=== PATIENT | female | born 1960 | race Caucasian/White ===

== ENCOUNTER → 2023-08-22 09:12 | Outpatient (REF) | payer OTHER, SELFPAY | LOC: WDC 09:12 | PROVIDERS: ATTENDING PHYSICIAN Surgery | DX: C50.412 Malignant neoplasm of upper-outer quadrant of left female breast (principal) | CPT/HCPCS: 19285; 38792; 76942; 77065; A4648; A9541 ==

== ENCOUNTER → 2023-08-23 07:39 | Outpatient (REF) | payer OTHER, SELFPAY | LOC: WDC 07:39 | PROVIDERS: ATTENDING PHYSICIAN Surgery | DX: C50.412 Malignant neoplasm of upper-outer quadrant of left female breast (principal) | CPT/HCPCS: 88305; 88307; 88332; 76098; 88331; 88342 ==

== ENCOUNTER 2023-10-15 07:12 | Emergency (ER) | payer OTHER, SELFPAY ==
[2023-10-15] VITALS (7 sets, daily range): BP systolic 108–124; BP diastolic 63–78; PULSE 78–87
--- NOTE | 2023-10-15 07:45 | ED.GENMED ---
History of Present Illness
General
Chief Complaint: Fainting/Passed Out
Source: patient, records and spouse
Exam Limitations: none
Time Seen by Provider: 10/15/23 07:28
Nursing documentation reviewed up to this point in time: agreed with
Travel History
Have you had any contact with someone who has COVID-19?: No
Do you have any symptoms of coronavirus? Fever > 100 degrees, chills, cough, shortness of breath, sore throat, loss of taste or smell, muscle aches, or headache?: No
History of Present Illness
History of Present Illness:
Patient is a 63-year-old female presents to the emergency department after syncopal episode this morning. Patient started chemotherapy 5 days ago for the first time. Patient had a lumpectomy on the left with 1 node that was positive. For the next
2 days the patient felt fine and then 2 days ago she was not feeling well and had a temperature of 100 with generalized malaise and myalgias arthralgias. Patient denies any nasal congestion, sore throat or cough. Patient denies any GI or
symptoms. Yesterday the patient felt pretty much the same length. During the night and around 1245 the patient took Tylenol for fever. Patient then started to have more frequent bowel movements that were not diarrhea. At 4:30 AM she developed
terrible stomach pain and passed out. Patient did fall forward striking her face. Patient feels tired. Patient denies any chest pain, shortness of breath or palpitations. Patient denies any nausea or vomiting. Patient denies any symptoms.
Patient does have a history of atrial fibrillation and is on Eliquis. Patient denies any malocclusion but does state that she injured her right upper lip. Patient denies any neck or back pain. Patient called her oncologist who suggested she come
to the hospital and get checked out. Patient states she has been eating and drinking. Patient had an echocardiogram since beginning of the year which was unremarkable.
Past History
Past History
ED Past Medical History: Cancer (Thyroid, breast), HTN, Hypothyroidism and Other (Right bundle branch block)
ED Past Surgical History: Other (Thyroidectomy)
Social History
Tobacco: Non-smoker
Review of Systems
Review of Systems
All Other Systems: ROS reviewed and negative except as documented in HPI and ROS
Constitutional: Reports fever and fatigue; Denies chills
EENT: Reports no symptoms
Respiratory: Reports no symptoms
Cardiac: Reports syncope; Denies chest pain, diaphoresis or palpitations
ABD/GI: Reports abdominal pain; Denies nausea, vomiting, diarrhea, constipated, bloody stools, black stools or anorexia
: Reports no symptoms
Musculoskeletal: Reports no symptoms
Skin: Reports no symptoms
Neurological: Reports no symptoms
Hematologic/Lymphatic: Reports no symptoms
Psychiatric: Reports no symptoms
Phy Exam
Physical Exam
Physical Exam:
Physical Exam
General: No apparent distress, alert and appropriate, well nourished, dry mucous membranes
HENT: Normocephalic with mild right lip contusion but dentition intact, supple with no lymphadenopathy, no thyromegaly
Eyes: Clear sclera, conjuctiva without injection
Heart: Regular rhythm and rate. No S3, S4. No murmur. No NVD, bruit
Lungs: No respiratory distress, no stridor, lung sounds clear and equal bilaterally, chest wall nontender
Abdomen: Soft, nontender, no organomegaly, no CVA tenderness, BS good
Neuro: Alert and oriented x 3, CN II - XII intact, no motor focality, no cerebellar dysfunction
Skin: no rash
Psychiatric: well kept. interactive and cooperative
Extremities: No edema, cyanosis, tenderness, Good and equal peripheral pulses.
Scores
Heart Failure Risk
Heart Failure Risk Score: Not Applicable
Heart Score for Chest Pain Patients
STEMI patient?: Not applicable
Withdrawal Assessment of Alcohol
Withdrawal Assessment Completed?: Not applicable
Course
Orders/Labs/Results
Orders:
Orders
10/15/23 07:16
EKG [Electrocardiogram (*1)] Urgent
Reason for Study: Syncope
10/15/23 07:17
EKG- Treatment ONCE
10/15/23 07:42
Orthostatic VS- Treatment ONCE
0.9% Sodium Chloride 1000 ml [Nss] 1,000 ml IV BOLUS
10/15/23 07:44
CT Head W/o Iv Contrast Urgent
Comment:
Reason For Exam: eliquis fell struck head
10/15/23 08:12
Complete Blood Count/With Diff Urgent
Comprehensive Metabolic Panel Urgent
TSH Reflex To Free T4 Urgent
Troponin I Urgent
Abnormal Lab Results
10/15/23
08:12
WBC 3.7 L 10^3/uL
(4.8-10.8)
Sodium 134 L mmol/L
(135-145)
Glucose 104 H mg/dl
(70-99)
ALT 46 H U/L
(0-35)
10/15/23 08:12
10/15/23 08:12
Vital Signs
Initial and Last Documented VS:
Initial Vital Signs
Temp Pulse Resp BP Pulse Ox
98.1 F 81 16 111/78 100
10/15/23 07:13 10/15/23 07:13 10/15/23 07:13 10/15/23 07:13 10/15/23 07:13
Last Documented Vital Signs
Temp Pulse Resp BP Pulse Ox
98.1 F 79 15 124/74 99
10/15/23 07:13 10/15/23 09:15 10/15/23 09:15 10/15/23 09:00 10/15/23 09:15
*Radiology
Radiology exam reviewed: radiology read reviewed (CT of the head unremarkable)
*Pulse Oximetry
Patient hypoxic: no
*EKG
Interpreted by ED Provider?: Yes
EKG Intrepretation Date: 10/15/23
EKG Intrepretation Time: 07:50
Interpretation: abnormal
Comparison EKG: no changes
Heart Rate: 71
Rate: normal
Rhythm: sinus
[place]: normal axis
Interval: normal interval
QRS Pattern: right bundle branch block (incomplete)
Ischemia: no ischemia
*Critical Care Note
Total Time (30-74mins, 75-104mins- exclusive of procedures): Not Applicable
Update Note
Update Note:
Patient is feeling much better. Patient was given a liter of fluid. Patient clinically appeared dehydrated. Patient's labs are unremarkable. Patient will be discharged to follow-up with her physician.
ED Attending Note
-
Portions of this chart may have been created with voice recognition software.� Occasional wrong word or��sound alike� substitutions may have occurred due to the inherent limitations of voice recognition software.
Discharge Plan
Departure
Patient Disposition: Home (Routine Discharge)
Date of Disposition: 10/15/23
Time of Disposition: 09:47
Patient with high blood pressure during this ER visit?: No
Condition: Good
Covid-19: Not Applicable
Discharge Problem:
Syncope
Instructions: Syncope (Fainting) (DC)
Prescriptions:
No Action
amlodipine 5 mg Tablet
5 mg PO QPM
acetaminophen [Tylenol Extra Strength] 500 mg Tablet
1,000 mg PO BIDPRN PRN (Reason: mild pain)
levothyroxine 100 mcg Tablet
100 mcg PO DAILY
calcium carbonate 500 mg calcium (1,250 mg) Tablet
500 mg PO QPM
cholecalciferol (vitamin D3) 50 mcg (2,000 unit) Tablet
50 mcg PO QPM
metoprolol succinate 50 mg Tablet Extended Release 24 Hr
50 mg PO BID Qty: 60 0RF
Eliquis 5 mg Tablet
5 mg PO BID Qty: 60 0RF
Referrals:
Radha Reyes, DO [Family Provider] - Follow up in 5-7 days
Activity Restrictions/Additional Instructions:
Continue present medications and therapy. Make sure to stay very well-hydrated.
Interventions
Interventions:
*Risk Screen - Suicide Last Done: 10/15/23 07:13
*General Assessment Last Done: 10/15/23 07:13
*Neglect/Abuse Screening Last Done: 10/15/23 07:13
ED- Fall Risk Assessment Last Done: 10/15/23 08:10
ED- Cardiac Assessment Last Done: 10/15/23 08:10
Discharge Date and Time
Print Language: OCCITAN
[2023-10-15] MEDS: NSS 1000 IV (08:13)
[2023-10-15 08:28] LABS: Hematocrit 39.8 % (37.0-47.0); Hemoglobin 13.5 g/dL (12.0-16.0); Mean Corp Hgb Conc. 33.9 g/dL (33.0-37.0); Mean Corpuscular Hgb 29.9 pg (27.0-31.0); Mean Corpuscular Volume 88.2 fL (81.0-99.0); Nucleated Red Blood Cells % 0 %; Red Blood Cell Count 4.51 10^6/uL (4.20-5.40); Red Cell Dist. Width 12.3 % (11.5-14.5); White Blood Cell Count 3.7 10^3/uL (4.8-10.8)
[2023-10-15 08:38] LABS: ALT (SGPT) 46 U/L (0-35); AST (SGOT) 23 U/L (14-36); Alkaline Phosphatase 98 U/L (38-126); Blood Urea Nitrogen 10 mg/dl (7-17); Calcium 8.5 mg/dl (8.4-10.2); Carbon Dioxide 27 mmol/L (22-30); Chloride 103 mmol/L (98-107); Glucose 104 mg/dl (70-99); Potassium 4.4 mmol/L (3.5-5.1); Sodium 134 mmol/L (135-145); eGFR > 60.00
[2023-10-15 08:50] LABS: Troponin I < 0.012 ng/ml
[2023-10-15 09:09] LABS: TSH Reflex To Free T4 1.82 uIU/ml (0.47-4.68)
[2023-10-15 12:12] LABS: Mean Platelet Volume 12.8 fL (7.4-10.4); Platelet Count 109 10^3/uL (130-400)
[2023-10-15 12:13] LABS: Absolute Neutrophils -Man Diff 3.1 10^3/uL (1.4-6.5); Band Neutrophils 10 % (0-3); Eosinophils 1 % (0-6); Lymphocytes 3 % (20-51); Metamyelocytes 3 % (-); Monocytes 2 % (2-9); Myelocytes 4 % (-); Segmented Neutrophils 76 % (42-75)
[2023-10-15 12:14] LABS: Hypersegmented Neutrophil FEW; Normal RBC Morphology No; Platelets Checked YES
[2023-10-15 12:16] LABS: Target Cells FEW; Total Cells Counted 100
== END 2023-10-15 10:20 | disposition home or self-care (01) ==
LOC: EMR 07:12
PROVIDERS: EMERGENCY PHYSICIAN Emergency Medicine; FAMILY PHYSICIAN Family Medicine
DX: R55 Syncope and collapse (principal); I10 Essential (primary) hypertension; E03.9 Hypothyroidism, unspecified; I45.10 Unspecified right bundle-branch block; I48.91 Unspecified atrial fibrillation; Z79.01 Long term (current) use of anticoagulants
CPT/HCPCS: 99284; 96360; 70450; 80053; 84443; 84484; 85025; 93005

== ENCOUNTER 2023-12-20 21:33 | Inpatient (IN) | payer OTHER, SELFPAY ==
[2023-12-20 17:41] VITALS: BP 120/72
[2023-12-20 18:13] LABS: Hematocrit 29.3 % (37.0-47.0); Hemoglobin 10.3 g/dL (12.0-16.0); Mean Corp Hgb Conc. 35.2 g/dL (33.0-37.0); Mean Corpuscular Hgb 30.7 pg (27.0-31.0); Mean Corpuscular Volume 87.2 fL (81.0-99.0); Mean Platelet Volume 11.1 fL (7.4-10.4); Platelet Count 165 10^3/uL (130-400); Red Blood Cell Count 3.36 10^6/uL (4.20-5.40)
[2023-12-20 18:23] LABS: Lactic Acid 1.8 mmol/L (0.7-2.0)
[2023-12-20 18:25] LABS: White Blood Cell Count 1.5 10^3/uL (4.8-10.8)
[2023-12-20 18:26] LABS: COVID-19 Antigen Negative (Negative)
[2023-12-20 18:36] LABS: ALT (SGPT) 30 U/L (0-35); AST (SGOT) 20 U/L (14-36); Albumin 3.9 g/dl (3.5-5.0); Alkaline Phosphatase 87 U/L (38-126); Blood Urea Nitrogen 8 mg/dl (7-17); Calcium 8.8 mg/dl (8.4-10.2); Carbon Dioxide 26 mmol/L (22-30); Glucose 125 mg/dl (70-99); Total Bilirubin 0.5 mg/dl (0.2-1.3); Total Protein 6.9 g/dl (6.3-8.2); eGFR > 60.00
[2023-12-20 18:47] LABS: Chloride 102 mmol/L (98-107); Potassium 3.9 mmol/L (3.5-5.1); Sodium 132 mmol/L (135-145)
[2023-12-20 18:58] LABS: Band Neutrophils 0 % (0-3); Lymphocytes 39 % (20-51); Monocytes 33 % (2-9); Segmented Neutrophils 21 % (42-75)
[2023-12-20 18:59] LABS: Atypical Lymphocytes 4 %; Eosinophils 2 % (0-6); Normal RBC Morphology Yes; Other Cells 1; Platelets Checked Yes; Total Cells Counted 100
[2023-12-20 19:02] LABS: Absolute Neutrophils -Man Diff 0.3 10^3/uL (1.4-6.5)
--- NOTE | 2023-12-20 20:12 | ED.GENMED ---
Addendum entered and electronically signed by Emil Fitzgerald DO 12/20/23 20:35:
Patient does not have a port we will hold on vancomycin for now
Addendum entered and electronically signed by Emil Fitzgerald DO 12/20/23 20:20:
EKG sinus tach at 120 bpm
Original Note:
History of Present Illness
General
Chief Complaint: Fever
Source: patient
Exam Limitations: none
Time Seen by Provider: 12/20/23 19:51
Nursing documentation reviewed up to this point in time: agreed with
Travel History
Have you had any contact with someone who has COVID-19?: No
Do you have any symptoms of coronavirus? Fever > 100 degrees, chills, cough, shortness of breath, sore throat, loss of taste or smell, muscle aches, or headache?: No
History of Present Illness
History of Present Illness:
63-year-old female presents with fever body aches, mild congestion, conjunctivitis for left eyelid with a stye, some redness of her right forearm had a prior IV site, she [facility] Reece for breast cancer last chemo
was a week ago, only tolerated half a dose of Neupogen/Neulasta? previously when she got a full dose she had syncope
No dysuria or frequency no diarrhea, she spoke with her on-call oncologist who recommended she come to the ER likely to be admitted she was given an antibiotic for her eye today by her eye doctor was a pill, she is unsure the name
Past History
Past History
ED Past Medical History: Cancer (Thyroid, breast), HTN, Hypothyroidism and Other (Right bundle branch block)
ED Past Surgical History: Cardiac and Other (Thyroidectomy mastectomy, ASD repair)
Social History
Tobacco: Non-smoker
Alcohol: None
Drug: None
Personal:
Living: with family
Review of Systems
Review of Systems
All Other Systems: Not applicable
Constitutional: Reports fever, fatigue and chills
EENT: Reports other (Eye swelling)
Respiratory: Reports cough
Cardiac: Reports no symptoms
ABD/GI: Reports no symptoms
: Reports no symptoms
Musculoskeletal: Reports muscle stiffness and other (Mild redness of the right forearm)
Hematologic/Lymphatic: Reports no symptoms
Psychiatric: Reports no symptoms
Phy Exam
Physical Exam
Physical Exam:
Physical Exam
General: no apparent distress, not acutely ill
Neck: Dry lips no jaundice stye on the left eye
Heart: s1/s2 regular rate and rhythm, no murmur. equal radial pulses.
Lungs: no acute respiratory distress.
Abdomen: Nontender
Neuro: alert and oriented. no focal neurological deficits
Skin: no rash
Psychiatric: well kept. interactive and cooperative
Extremities: 3 x 5 cm area of warmth on the right forearm
Course
Orders/Labs/Results
Orders:
Orders
12/20/23 17:46
Electrocardiogram (*1) Urgent
Reason for Study: Other
Other Reason for Exam: Possible Sepsis
EKG- Treatment ONCE
12/20/23 17:59
COVID-19 Antigen Urgent
Source: Nasal Swab
Complete Blood Count/With Diff Urgent
Comprehensive Metabolic Panel Urgent
Lactic Acid Urgent
Manual Differential Urgent
Blood Culture Urgent
RAQUEL Source: Blood/Venous
Specimen Description:
Influenza A+B Rapid Molecular Urgent
RAQUEL Source: Nasal Swab
Specimen Description:
12/20/23 20:07
CR Chest Portable - 1 View Urgent
Comment:
Reason For Exam: sob fever
Reason Study Needs to be Portable: Patient Unstable
12/20/23 20:09
0.9% Sodium Chloride 1000 ml [Nss] 2,000 ml IV BOLUS
Cefepime HCl [Maxipime] 2,000 mg IV NOW STA
12/20/23 20:10
Urinalysis Urgent
Urine Culture Urgent
RAQUEL Source: Urine
Specimen Description:
Abnormal Lab Results
12/20/23
17:59
WBC 1.5 L* 10^3/uL
(4.8-10.8)
RBC 3.36 L 10^6/uL
(4.20-5.40)
Hgb 10.3 L g/dL
(12.0-16.0)
Hct 29.3 L %
(37.0-47.0)
RDW 15.0 H %
(11.5-14.5)
MPV 11.1 H fL
(7.4-10.4)
Sodium 132 L mmol/L
(135-145)
Creatinine 0.5 L mg/dL
(0.6-1.0)
Glucose 125 H mg/dl
(70-99)
12/20/23 17:59
12/20/23 17:59
Vital Signs
Initial and Last Documented VS:
Initial Vital Signs
Temp Pulse Resp BP Pulse Ox
99.7 F 125 20 120/72 97
12/20/23 17:41 12/20/23 17:41 12/20/23 17:41 12/20/23 17:41 12/20/23 17:41
Last Documented Vital Signs
Temp Pulse Resp BP Pulse Ox
99.7 F 125 20 120/72 97
12/20/23 17:41 12/20/23 17:41 12/20/23 17:41 12/20/23 17:41 12/20/23 17:41
MDM/Problems Addressed
Differential Diagnosis Includes:
Neutropenic sepsis bacteremia cellulitis conjunctivitis
MDM/Problems Addressed:
Fever neutropenia
Chronic conditions affecting care: Immunosuppressed
Acute Exacerbation and/or Progression of Chronic Illness: Immunosuppressed
*Radiology
Radiology exam reviewed: preliminary read by ED provider
*Pulse Oximetry
Patient hypoxic: no
*Physician Representative Interpretation
Rate: normal
Interpretation: normal
Heart Rate: 105
Rhythm: sinus
*Critical Care Note
Total Time (30-74mins, 75-104mins- exclusive of procedures): 30
Update Note
Update Note:
Update white count noted differential pending will certainly be neutropenic conceivably could be due to her stye and/or cellulitis nonetheless it would be prudent to admit her to the hospital broad-spectrum antibiotics following resuscitation Tylenol
ED Attending Note
-
Portions of this chart may have been created with voice recognition software.� Occasional wrong word or��sound alike� substitutions may have occurred due to the inherent limitations of voice recognition software.
Discharge Plan
Departure
Patient Disposition: Admit
Date of Disposition: 12/20/23
Time of Disposition: 20:18
Presentation/result/management discussed w/ accepting MD/DO: Hospitalist
Patient with high blood pressure during this ER visit?: No
Condition: Fair
Covid-19: Negative COVID-19
Discharge Problem:
Neutropenia with fever
Prescriptions:
No Action
amlodipine 5 mg Tablet
5 mg PO QPM
acetaminophen [Tylenol Extra Strength] 500 mg Tablet
1,000 mg PO BIDPRN PRN (Reason: mild pain)
levothyroxine 100 mcg Tablet
100 mcg PO DAILY
calcium carbonate 500 mg calcium (1,250 mg) Tablet
500 mg PO QPM
cholecalciferol (vitamin D3) 50 mcg (2,000 unit) Tablet
50 mcg PO QPM
metoprolol succinate 50 mg Tablet Extended Release 24 Hr
50 mg PO BID Qty: 60 0RF
Eliquis 5 mg Tablet
5 mg PO BID Qty: 60 0RF
Interventions
Interventions:
*Risk Screen - Suicide Last Done: 12/20/23 17:41
*General Assessment Last Done: 12/20/23 17:41
*Neglect/Abuse Screening Last Done: 12/20/23 17:41
Discharge Date and Time
Print Language: SYRIAC
[2023-12-20 20:53] LABS: Urine Albumin Negative (Neg - Trace); Urine Bilirubin Negative (Negative); Urine Character Clear (Clear); Urine Color Yellow; Urine Glucose Negative (Negative); Urine Ketone Negative (Negative); Urine Leukocyte 2+ (Negative); Urine Nitrite Negative (Negative); Urine Occult Blood Negative (Negative); Urine Specific Gravity 1.005 (<1.030); Urine Urobilinogen Negative (Neg - 1+)
--- NOTE | 2023-12-20 21:08 | HPS.HSE ---
Family Physician
-
Family Physician: Radha Reyes
Chief Complaint
-
fever
History of Present Illness
63-year-old female past medical history of breast cancer on chemotherapy, paroxysmal atrial fibrillation, history of SVT, ASD status post repair, right bundle branch block, hypertension, hypothyroidism, thyroid cancer status post thyroidectomy,
presenting with fever, weakness as well as left eye stye and redness and swelling of the right forearm over the past 5 ays.
Patient received chemotherapy 7 days ago, and 6 days ago received a shot increase her white blood cell count. 5 days ago she developed the symptoms listed above. She recently had a left eyelid stye for which she has been applying warm compresses.
It was painful and did appear to improve but she has some conjunctivitis of the left eye. She went to see stringing machine tender today who prescribed Keflex.
Patient has also developed redness, swelling and pain of her right forearm where IV was placed for chemotherapy.
She denies nausea vomiting, diarrhea, urinary symptoms. She has some mild cough which she thinks is from irritation of her throat. She denies chest pain.
She denies smoking or alcohol use.
Medical History
Past Medical History
Past Medical History: Reports Other (breast cancer on chemotherapy, paroxysmal atrial fibrillation, history of SVT, ASD status post repair, right bundle branch block, hypertension, hypothyroidism, thyroid cancer status post thyroidectomy,)
Past Surgical History: Reports Other (Cardiac and Other (Thyroidectomy mastectomy, ASD repair))
Social History
Tobacco: Non-smoker
Alcohol: Occasional
Drug: None
Family History
Family History: Not pertinent
Allergies / Home Medications
Allergies reflects when Allergies were last updated in [facility].
Home Medications with original date entered in [facility]
Allergy/Medication List:
Allergies
Allergy/AdvReac Type Severity Reaction Status Date / Time
No Known Allergies Allergy Verified 12/20/23 17:45
Home Medications
acetaminophen 500 mg tablet (Tylenol Extra Strength) 1,000 mg PO BIDPRN PRN mild pain 07/22/23
amlodipine 5 mg tablet 5 mg PO QPM 07/22/23
calcium carbonate 500 mg PO QPM 07/22/23
cholecalciferol (vitamin D3) 50 mcg (2,000 unit) tablet 50 mcg PO QPM 07/22/23
levothyroxine 100 mcg tablet 100 mcg PO DAILY 07/22/23
metoprolol succinate 50 mg tablet,extended release 24 hr 50 mg PO BID #60 tabs 07/23/23
cephalexin 500 mg tablet 500 mg PO BID 12/20/23
Review of Systems
-
History Source: Patient
A 12 point ROS was completed and negative except as noted: Yes
Constitutional: Reports No Symptoms
EENT: Reports See HPI
Respiratory: Reports No Symptoms
Cardiac: Reports No Symptoms
Abdomen/GI: Reports No Symptoms
: Reports No Symptoms
Musculoskeletal: Reports No Symptoms
Skin: Reports See HPI
Neurological: Reports No Symptoms
Endocrine: Reports No Symptoms
Hematologic/Lymphatic: Reports No Symptoms
Psych: Reports No Symptoms
Physical Exam
Vital Signs
Vital Signs
Temp Pulse Resp BP Pulse Ox
99.7 F 125 20 120/72 97
12/20/23 17:41 12/20/23 17:41 12/20/23 17:41 12/20/23 17:41 12/20/23 17:41
Physical Exam
General: Well Developed, Well Nourished and No Apparent Distress
HEENT: NormoCephalic, Moist mucous membranes, Atraumatic and Other (left eye conjunctivitis )
Respiratory: Clear
Cardiac: S1/S2 and Regular Rhythm; No Murmur or Rub
GI: Soft, Non Tender, Non Distended and Normal Bowel Sounds; No Organomegaly
Rectal: Deferred by Provider
Musculoskeletal: No Clubbing, No Cyanosis and No Edema
Skin: Other (right forearm erythema, swelling ); No Rash
Neuro: Nonfocal/grossly intact
Laboratory Results
-
12/20/23 17:59
12/20/23 17:59
Laboratory Results
Lactic Acid 1.8 mmol/L (0.7-2.0) 12/20/23 17:59
Total Bilirubin 0.5 mg/dl (0.2-1.3) 12/20/23 17:59
AST 20 U/L (14-36) 12/20/23 17:59
ALT 30 U/L (0-35) 12/20/23 17:59
Alkaline Phosphatase 87 U/L (38-126) 12/20/23 17:59
Data Reviewed
-
Lab Data: Labs Reviewed by me
Old Records: Reviewed
Impression/Plan
-
IMPRESSION:
PLAN:
# Sepsis (fever, tachycardia, leukopenia) secondary to right forearm cellulitis/ left eye stye
-COVID and influenza negative
-Urinalysis pending
-Check blood cultures
-IV fluids
-Cefepime
# Worsening leukopenia secondary to infection/recent chemotherapy
-Oncology consulted
# Normocytic anemia likely secondary to chemotherapy
-Hemoglobin of 10
# Cough
-Check chest x-ray
Breast cancer on chemotherapy
-Last received chemotherapy last week
Paroxysmal atrial fibrillation
-EKG shows sinus tachycardia at this time
-Continue Eliquis
-Continue metoprolol
History of SVT
ASD status post repair
Right bundle branch block
Essential hypertension
-Continue amlodipine
Thyroid cancer status post thyroidectomy
Hypothyroidism
-Continue levothyroxine
Full code
DVT prophylaxis�Eliquis
Regular diet
[2023-12-20 21:22] LABS: Urine Bacteria Few (Negative); Urine Red Blood Cell 0-2 /HPF (0-2); Urine Squamous Cell >30 /LPF (Few)
[2023-12-20] MEDS: MAXIPIME 2000 MG IV (21:28)
[2023-12-20] MEDS: NSS 2000 IV (21:34)
[2023-12-20 21:36] VITALS: BP 130/75
[2023-12-20] MEDS: TYLENOL 1000 MG PO (22:37)
[2023-12-20 22:42] LABS: Pathologist Reviewed No
[2023-12-20 23:21] VITALS: BP 147/80; BMI 28.1
[2023-12-20 23:29] VITALS: BMI 28.1
[2023-12-20] MEDS: NSS 1000 IV (23:31)
[2023-12-21] VITALS (7 sets, daily range): BP systolic 93–121; BP diastolic 63–76; BMI 28.1
[2023-12-21 05:31] LABS: Hematocrit 28.5 % (37.0-47.0); Hemoglobin 9.7 g/dL (12.0-16.0); Mean Corpuscular Hgb 30.2 pg (27.0-31.0); Mean Corpuscular Volume 88.8 fL (81.0-99.0); Mean Platelet Volume 11.1 fL (7.4-10.4); Nucleated Red Blood Cells % 0 %; Platelet Count 168 10^3/uL (130-400); Red Blood Cell Count 3.21 10^6/uL (4.20-5.40); Red Cell Dist. Width 15.4 % (11.5-14.5)
[2023-12-21 05:52] LABS: ALT (SGPT) 26 U/L (0-35); AST (SGOT) 18 U/L (14-36); Albumin 3.3 g/dl (3.5-5.0); Alkaline Phosphatase 76 U/L (38-126); Blood Urea Nitrogen 5 mg/dl (7-17); Carbon Dioxide 23 mmol/L (22-30); Chloride 106 mmol/L (98-107); Estimated Creatinine Clearance 93 ml/min; Glucose 105 mg/dl (70-99); Potassium 4.2 mmol/L (3.5-5.1); Sodium 138 mmol/L (135-145); Total Bilirubin 0.7 mg/dl (0.2-1.3); Total Protein 5.9 g/dl (6.3-8.2); eGFR > 60.00
[2023-12-21 06:03] LABS: White Blood Cell Count 2.1 10^3/uL (4.8-10.8)
--- NOTE | 2023-12-21 06:09 | CON.ONC ---
Impression
Impression
Stage I left breast ca
Neutropenic Fever
left eye stye
Chemotherapy induced anemia
Plan
Plan
IV Cefepime
Await cultures
No role for additional G-CSF as received Neulasta in office.
WBC already improved from 1.5 to 2.1. Await ANC. If > 1.0, afebrile and cultures negative, she can be discharged home.
Thank you.
Patient History
History of Present Illness
Family Physician: Radha Reyes
Primary Oncologist: Nighat Reece
CC: fever 100.7
HPI: 63-year-old female on adjuvant TC chemotherapy for Stage Ib, pT2 pN1a cM0, Left breast cancer, grade 2, ER/AR positive, HER2 negative/0, Oncotype = 29 presenting with fever, weakness as well as left eye stye and redness. She underwent her
final scheduled cycle (# 4 of 4) TC on 12/12 with 1/2 dose Neulasta 3 mg on 12/13. Symptoms began following chemotherapy and she called yesterday pm the reclamation worker doc with fever 100.9 and was referred to ER. Has a stye left lower lid and scleral
redness. Stye improving on ABx. She denies nausea vomiting, diarrhea, urinary symptoms. She has some mild cough with post nasal drip. No sore throat.
Past-Medical/Surgical History
PMH: St I breast cancer on TC adjuvant chemotherapy, paroxysmal atrial fibrillation, history of SVT, ASD status post repair, right bundle branch block, hypertension, hypothyroidism, thyroid cancer status post thyroidectomy & radioactive iodine 2005
PSH: Thyroidectomy, left partial mastectomy, ASD repair 1978, x 3, bunionectomy
SH:
, 3 kids
Tobacco: Non-smoker
Alcohol: Occasional
Drug: None
FH: Not pertinent
Patient Medication
�Medication �Instructions �Recorded �Confirmed �Last Taken �Type
acetaminophen 500 mg tablet 1,000 mg PO BIDPRN PRN mild pain 07/22/23 12/20/23 07/21/23 History
(Tylenol Extra Strength)
amlodipine 5 mg tablet 5 mg PO QPM 07/22/23 12/20/23 12/19/23 History
calcium carbonate 500 mg PO QPM 07/22/23 12/20/23 12/19/23 History
cholecalciferol (vitamin D3) 50 50 mcg PO QPM 07/22/23 12/20/23 12/19/23 History
mcg (2,000 unit) tablet
levothyroxine 100 mcg tablet 100 mcg PO DAILY 07/22/23 12/20/23 12/20/23 History
metoprolol succinate 50 mg 50 mg PO BID #60 tabs 07/23/23 12/20/23 12/20/23 Rx
tablet,extended release 24 hr
cephalexin 500 mg tablet 500 mg PO BID 12/20/23 12/20/23 12/20/23 History
Active Medications
Generic Name Dose Route Start Last Admin
Trade Name Freq PRN Reason Stop Dose Admin
Acetaminophen 1,000 mg 12/20/23 22:33 12/20/23 22:37
Acetaminophen 500 Mg Tablet PO 01/17/24 22:32 1,000 mg
BIDPRN PRN Administration
mild pain
Amlodipine Besylate 5 mg 12/21/23 18:00
Amlodipine 5 Mg Tablet PO 01/18/24 17:59
QPM ISAMAR
Calcium Carbonate 500 mg 12/21/23 18:00
Calcium Carbonate 500 Mg Tablet PO 01/18/24 17:59
QPM ISAMAR
Cefepime HCl 1,000 mg 12/21/23 10:00
Cefepime Hcl 1,000 Mg/11.3 Ml Vial IV
Q12H ISAMAR
Cholecalciferol 50 mcg 12/21/23 18:00
Cholecalciferol (Vitamin D3) 50 Mcg Tablet (2,000 Units) PO 01/18/24 17:59
QPM ISAMAR
Sodium Chloride 1,000 mls @ 100 mls/hr 12/20/23 23:09 12/20/23 23:31
Nss IV 1,000 mls
.Q10H ISAMAR Administration
Levothyroxine Sodium 100 mcg 12/21/23 06:00
Levothyroxine 100 Mcg Tablet PO 01/18/24 05:59
DAILY @ 0600 ISAMAR
Metoprolol Succinate 50 mg 12/21/23 08:00
Metoprolol 50 Mg Extended Release Tablet PO 01/18/24 07:59
BID ISAMAR
Sodium Chloride 0 flush 12/20/23 23:00
Sodium Chloride 0.9% (Flush) Syringe IV 01/17/24 22:59
PER PROTOCOL ISAMAR
Sterile Water 10 ml 12/21/23 10:00
Sterile Water For Injection 10 Ml Vial IV 01/18/24 09:59
Q12H ISAMAR
Review of Systems
-
Constitutional: Reports Fever
EENT: Reports Sore Throat and Eye Pain
Respiratory: Reports Cough
Cardiac: Reports No Symptoms
GI: Reports No Symptoms
Breast: Reports No Symptoms
: Reports No Symptoms
Skin: Reports No Symptoms
Neuro: Reports No Symptoms
Physical Exam
-
General: Well Developed, Well Nourished and No Apparent Distress
HEENT: Other (left lower lid stye and scleral injection)
Cardiology: S1 and S2
Pulmonary: Clear
GI: Soft
Extremities: No C/C/E
Neurology: Non Focal
Psych: Calm
Labs
Lab Results
WBC 2.1 10^3/uL (4.8-10.8) L* 12/21/23 04:27
RBC 3.21 10^6/uL (4.20-5.40) L 12/21/23 04:27
Hgb 9.7 g/dL (12.0-16.0) L 12/21/23 04:27
Hct 28.5 % (37.0-47.0) L 12/21/23 04:27
MCV 88.8 fL (81.0-99.0) 12/21/23 04:27
MCH 30.2 pg (27.0-31.0) 12/21/23 04:27
MCHC 34.0 g/dL (33.0-37.0) 12/21/23 04:27
RDW 15.4 % (11.5-14.5) H 12/21/23 04:27
Plt Count 168 10^3/uL (130-400) 12/21/23 04:27
MPV 11.1 fL (7.4-10.4) H 12/21/23 04:27
Abs Immat Gran (auto) Not Reportable 12/20/23 17:59
Absolute Neuts (auto) Not Reportable 12/20/23 17:59
Absolute Lymphs (auto) Not Reportable 12/20/23 17:59
Absolute Monos (auto) Not Reportable 12/20/23 17:59
Absolute Eos (auto) Not Reportable 12/20/23 17:59
Absolute Basos (auto) Not Reportable 12/20/23 17:59
Immature Gran % Not Reportable 12/20/23 17:59
Neutrophils % Not Reportable 12/20/23 17:59
Lymphocytes % Not Reportable 12/20/23 17:59
Monocytes % Not Reportable 12/20/23 17:59
Eosinophils % Not Reportable 12/20/23 17:59
Basophils % Not Reportable 12/20/23 17:59
Creatinine 0.4 mg/dL (0.6-1.0) L 12/21/23 04:27
Vital Signs
Vital Signs
Temp Pulse Resp BP Pulse Ox
99.5 F 93 16 116/63 98
12/21/23 03:27 12/21/23 03:27 12/21/23 03:27 12/21/23 03:27 12/21/23 03:27
[2023-12-21] MEDS: SYNTHROID 100 MCG PO (06:39)
[2023-12-21 08:01] LABS: Band Neutrophils 8 % (0-3); Eosinophils 3 % (0-6); Lymphocytes 41 % (20-51); Monocytes 28 % (2-9); Segmented Neutrophils 16 % (42-75)
[2023-12-21 08:02] LABS: Anisocytosis 1+; Atypical Lymphocytes 1 %; Hypochromasia 1+; Metamyelocytes 2 % (-); Myelocytes 1 % (-); Normal RBC Morphology No; Platelets Checked Yes; Polychromasia 1+; Total Cells Counted 100
[2023-12-21 08:04] LABS: Absolute Neutrophils -Man Diff 0.5 10^3/uL (1.4-6.5)
[2023-12-21] MEDS: TOPROL XL 50 MG PO ×2 (09:05→20:32)
[2023-12-21] MEDS: STERILE WATER FOR INJECTION 10 ML IV ×2 (09:06→21:51)
[2023-12-21] MEDS: NSS 1000 IV ×2 (09:06→19:27)
[2023-12-21] MEDS: MAXIPIME 1000 MG IV ×2 (09:06→21:51)
--- NOTE | 2023-12-21 12:22 | CM ---
Initial assessment completed with patient who lives with her in a 2 story home with basement and B/B on 1st and 2nd floors, 3 steps to enter home. Patient does not use any DME but has in home a SPC, RW, Rollator, W/CH and SC. No in-home
services. Received last chemo session on 12/13/23 for breast cancer. 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 No psychiatric hospitalizations. Pharmacy is [facility] on [address] in [place] and PCP is Dr. Radha Reyes @ [facility] primary care. Anticipate no needs at
discharge unless IV/AB will continue.
[2023-12-21] MEDS: NORVASC 5 MG PO (17:07)
[2023-12-21] MEDS: OSCAL CAL 500 500 MG PO (17:07)
[2023-12-21] MEDS: VITAMIN D3 (cholecalciferol) 50 MCG PO (17:08)
--- NOTE | 2023-12-21 18:43 | W.PN.HOSP.TC ---
Addendum entered and electronically signed by Kenan Coleman MD 12/21/23 23:20:
Attending Addendum-
I saw and evaluated the patient. I reviewed the resident�s note and agree with findings and plan as documented in the resident�s note.Patient complians of left eye stye and right forearm area of redness. Had fever @ 2200 last PM. Full 12 point ROS
reviewed and negative except as documented Exam: Vitals reviewed in chart GEN-NAD HEENT left eyelid stye present eye mild injection heart RRR lungs clear abd soft LE no edema Skin right forearm circular area or redenss and warmth Plan:
# Sepsis secondary to right forearm cellulitis most likely
-COVID and influenza negative
-CXR- personally reviewed no infiltrate
-urine and blood cultures- P
-IV fluids
- cont Cefepime
# Febrile Neutropenia
- ANC 300-->500
- appreciate onc input
- cont cefepime
- s/p chemo 7 days ago
- monitor cbc closely and daily
# Left Eye Stye
- cont warm compress
- may add abx eye drops if worsens
# Hyponatremia-
- hypovolemic
- resolved after IVF
- repeat BMP in am
# Normocytic anemia likely secondary to chemotherapy
-Hemoglobin of 10
# Breast cancer on chemotherapy
- s/p masectomy
-Last received chemotherapy last week
- onc on board
# Paroxysmal atrial fibrillation
-Continue Eliquis
-Continue metoprolol
# History of SVT
# ASD status post repair
# Right bundle branch block
# Essential hypertension
-Continue amlodipine
# Thyroid cancer status post thyroidectomy
# Hypothyroidism
-Continue levothyroxine
Full code
DVT prophylaxis�Eliquis
Dispo Eventual DC home with able
Time spent coordinating care, review of plan of care with resident, review of records, med rec, consults, notes, labs, rads, d/w nursing � 59 mins
Original Note:
Today's Communication/Plan
-
Blood and urine cultures
Continue antibiotics
Assessment / Plan
Assessment / Plan
IMPRESSION: 63 F with history of breast cancer on chemo, paroxysmal A-fib + RVR, hypertension, hypothyroidism, thyroid cancer status post thyroidectomy, SVT, ASD s/p repair, presents with leukopenic fever
PLAN:
# Sepsis of unknown cause
-fever, tachycardia, leukopenia
Right forearm cellulitis (at chemotherapy IV access site) vs left eye stye vs other cause
-COVID and influenza negative
-Urinalysis negative
-blood and urine cultures pending
-IV fluids
-Continue cefepime day 2
# leukopenia
secondary to infection vs recent chemotherapy
Improving, 2.1 today
-Appreciate oncology input: If ANC > 1.0, afebrile, cultures negative, okay to discharge
-ANC 0.5, febrile overnight to 100.8,
-Follow CBC+diff
#Normocytic anemia likely secondary to chemotherapy
-Hemoglobin stable 9.7
#Hyponatremia
-Resolved with fluids
# Cough
-Mild, no difficulty breathing. Chest x-ray normal
Breast cancer on chemotherapy
-Last received chemotherapy last week
Paroxysmal atrial fibrillation
-EKG shows sinus tachycardia at this time
-Continue Eliquis
-Continue metoprolol
Essential hypertension
-Continue amlodipine
Thyroid cancer status post thyroidectomy
Hypothyroidism
-Continue levothyroxine 100 mg
History of SVT
ASD status post repair
Right bundle branch block
Full code
DVT prophylaxis�Eliquis
Regular diet
Anticipated Discharge: 24 - 48 hours
Subjective/Interval History
-
Date of Service: December 21, 2023
Objective Data
-
Vital Signs:
Vital Signs
Temp Pulse Resp BP Pulse Ox
98.8 F 98 14 121/76 97
12/21/23 15:45 12/21/23 17:07 12/21/23 15:45 12/21/23 17:07 12/21/23 15:45
I&O
12/20/23 12/21/23 12/22/23
06:59 06:59 06:59
Intake Total 1240 / 1240 1859
Balance 1240 / 1240 1859
Review of Systems
-
History Source: Patient
Constitutional: Reports No Symptoms
EENT: Reports Other (left lower lid stye, eye redness)
Respiratory: Reports Cough (mild ); Denies Trouble Breathing
Cardiac: Reports No Symptoms; Denies Chest Pain or Diaphoresis
Abdomen/GI: Reports No Symptoms; Denies Abdominal Pain, Nausea, Diarrhea, Constipated or Bloody Stools
Genitourinary: Reports No Symptoms; Denies Dysuria, Difficulty Voiding or Bleeding
Musculoskeletal: Reports No Symptoms; Denies Joint Pain or Joint Swelling
Skin: Reports No Symptoms; Denies Itching, Rash or Sores
Neuro: Reports No Symptoms; Denies Dizzy, Headache or Lightheadedness
Physical Exam
-
General: Well Developed, Well Nourished, No Apparent Distress and Comfortable; Negative Fever
HEENT: Normocephalic, Atraumatic, Moist Mucous Membranes, Anicteric and [place] Conjunctivae
Respiratory: Clear to Auscultation and Non Labored Respirations; Negative Wheezes, Rales, Rhonchi, Crackles or Accessory Resp Muscle Use
Cardiac: Regular Rhythm, S1/S2 and Irregular Rhythm; Negative Murmur, Rub or Calf Tenderness
GI: Soft, Nontender, Nondistended and Normal Bowel Sounds
Musculoskeletal: No Clubbing, No Cyanosis and No Edema
Skin: Warm and Dry; Negative Rash, Ulcers, Lesions or Jaundice
Neuro: Awake, Alert and Oriented
Psych: Calm
[2023-12-22 03:37] VITALS: BP 110/66
[2023-12-22] MEDS: SYNTHROID 100 MCG PO (05:38)
[2023-12-22] MEDS: NSS 1000 IV (05:38)
[2023-12-22 05:44] VITALS: BMI 27.8
[2023-12-22 07:05] VITALS: BP 117/68
[2023-12-22 07:07] LABS: Hematocrit 29.5 % (37.0-47.0); Hemoglobin 9.7 g/dL (12.0-16.0); Mean Corp Hgb Conc. 32.9 g/dL (33.0-37.0); Mean Corpuscular Volume 91.3 fL (81.0-99.0); Mean Platelet Volume 10.7 fL (7.4-10.4); Nucleated Red Blood Cells % 0.4 %; Platelet Count 195 10^3/uL (130-400); Red Blood Cell Count 3.23 10^6/uL (4.20-5.40); Red Cell Dist. Width 15.5 % (11.5-14.5); White Blood Cell Count 4.9 10^3/uL (4.8-10.8)
[2023-12-22 07:21] LABS: ALT (SGPT) 30 U/L (0-35); AST (SGOT) 22 U/L (14-36); Albumin 3.2 g/dl (3.5-5.0); Alkaline Phosphatase 79 U/L (38-126); Blood Urea Nitrogen 3 mg/dl (7-17); Calcium 8.2 mg/dl (8.4-10.2); Carbon Dioxide 25 mmol/L (22-30); Chloride 107 mmol/L (98-107); Estimated Creatinine Clearance 93 ml/min; Glucose 94 mg/dl (70-99); Potassium 4.1 mmol/L (3.5-5.1); Sodium 139 mmol/L (135-145); Total Bilirubin 0.4 mg/dl (0.2-1.3); Total Protein 5.8 g/dl (6.3-8.2); eGFR > 60.00
[2023-12-22 08:06] LABS: Absolute Neutrophils -Man Diff 2.3 10^3/uL (1.4-6.5); Band Neutrophils 3 % (0-3); Segmented Neutrophils 44 % (42-75)
[2023-12-22 08:07] LABS: Lymphocytes 27 % (20-51); Metamyelocytes 2 % (-); Monocytes 19 % (2-9); Myelocytes 3 % (-)
[2023-12-22 08:08] LABS: Platelets Checked Yes
[2023-12-22 08:09] LABS: Anisocytosis 1+; Hypochromasia 1+; Normal RBC Morphology No; Polychromasia 1+
[2023-12-22 08:10] LABS: Total Cells Counted 100
[2023-12-22] MEDS: TOPROL XL 50 MG PO (09:30)
[2023-12-22] MEDS: MAXIPIME 1000 MG IV (09:30)
[2023-12-22] MEDS: STERILE WATER FOR INJECTION 10 ML IV (09:31)
--- NOTE | 2023-12-22 10:13 | W.PN.HOSP.TC ---
Addendum entered and electronically signed by Kenan Coleman MD 12/22/23 23:33:
Attending Addendum-
I saw and evaluated the patient. I reviewed the resident�s note and agree with findings and plan as documented in the resident�s note.stye improving and cellulitis improved. feels improbved. last fever @ 2200 12/19. Full 12 point ROS reviewed and
negative except as documented Exam: Vitals reviewed in chart GEN-NAD HEENT left eyelid stye present eye mild injection heart RRR lungs clear abd soft LE no edema Skin right forearm circular area or redness and warmth decreased size Plan:
# Sepsis secondary to right forearm cellulitis probable
-COVID and influenza negative
-CXR- personally reviewed no infiltrate
-urine young growth and blood cultures- NGTD
-IV fluids
-transition to PO levaquin on DC
# Febrile Neutropenia
- ANC 300-->2.3K
- appreciate onc input
- DC cefepime
- s/p chemo 7 days ago
- monitor cbc closely and daily
- dc on levaquin
# Left Eye Stye
- cont warm compress
- dc on levaquin
# Hyponatremia-
- hypovolemic
- resolved after IVF
# Normocytic anemia likely secondary to chemotherapy
-Hemoglobin of 10
# Breast cancer on chemotherapy
- s/p masectomy
-Last received chemotherapy last week
- onc on board
# Paroxysmal atrial fibrillation
-Continue Eliquis
-Continue metoprolol
# History of SVT
# ASD status post repair
# Right bundle branch block
# Essential hypertension
-Continue amlodipine
# Thyroid cancer status post thyroidectomy
# Hypothyroidism
-Continue levothyroxine
Full code
DVT prophylaxis�Eliquis
Dispo DC home
Time spent coordinating care, review of plan of care with resident, review of records, DC planning med rec, consults, notes, labs, rads, d/w nursing and ONC � 35 mins
Original Note:
Today's Communication/Plan
-
Discharge today on oral antibiotics
Assessment / Plan
Assessment / Plan
IMPRESSION: 63 F with history of breast cancer on chemo, paroxysmal A-fib + RVR, hypertension, hypothyroidism, thyroid cancer status post thyroidectomy, SVT, ASD s/p repair, presents with leukopenic fever
PLAN:
# Sepsis likely due to right arm cellulitis at port access
fever, tachycardia, leukopenia---- resolved
COVID and influenza negative
UC prelim- no growth
BC 1/2 prelim no growth
d/c IV fluids
UA seems suspicious for UTI, also stye in left eye. Plan to discharge patient today on oral abx
Will switch to levofloxacin 500 mg QD for the next 7 days to complete a [address] Cool and he agreed on discharge as ANC is 2.3
# leukopenia
secondary to infection vs recent chemotherapy
WBC improving, ANC 2.3
Okay to discharge today
#Normocytic anemia likely secondary to chemotherapy
-Hemoglobin stable 9.7
#Hyponatremia
-Resolved with fluids
# Cough
-Mild, no difficulty breathing. Chest x-ray normal
Breast cancer on chemotherapy
-Last received chemotherapy last week
Paroxysmal atrial fibrillation
-Continue Eliquis
-Continue metoprolol
Essential hypertension
-Continue amlodipine
Thyroid cancer status post thyroidectomy
Hypothyroidism
-Continue levothyroxine 100 mg
History of SVT
ASD status post repair
Right bundle branch block
Full code
DVT prophylaxis�Eliquis
Regular diet
Anticipated Discharge: Today
Subjective/Interval History
-
Date of Service: December 22, 2023
Patient is doing better. She states that pain and swelling has improved in right forearm. She feels energetic today as compared to yesterday.
Objective Data
-
Labs:
Laboratory Results
12/22/23
05:59
WBC 4.9
Hgb 9.7 L
Hct 29.5 L
Plt Count 195
Sodium 139
Potassium 4.1
Chloride 107
Carbon Dioxide 25
BUN 3 L
Creatinine 0.5 L
Glucose 94
Calcium 8.2 L
Total Bilirubin 0.4
AST 22
ALT 30
Alkaline Phosphatase 79
Vital Signs:
Vital Signs
Temp Pulse Resp BP Pulse Ox
98.8 F 81 18 117/68 95
12/22/23 07:05 12/22/23 09:30 12/22/23 07:05 12/22/23 09:30 12/22/23 07:05
I&O
12/21/23 12/22/23 12/23/23
06:59 06:59 06:59
Intake Total 1240 / 1240 3820 / 3820
Balance 1240 / 1240 3820 / 3820
Review of Systems
-
History Source: Patient
All other systems: Reviewed and negative (except mentioned )
Musculoskeletal: Reports Edema (resolved in right forearm )
Physical Exam
-
General: Comfortable and Conversant
HEENT: Normocephalic and Atraumatic
Respiratory: Clear to Auscultation
Cardiac: Regular Rhythm and S1/S2
GI: Soft, Nontender and Nondistended
Musculoskeletal: Edema, Right Upper Extrem (resolved )
Skin: Other (erythema in right forearm has improved,)
Neuro: AO x 3
Psych: Calm
Data Reviewed
-
Labs: Labs Reviewed by me and Discussed with Physician
[2023-12-22 11:05] VITALS: BP 111/71
[2023-12-22 15:05] VITALS: BP 116/74
--- NOTE | 2023-12-22 15:13 | CM ---
met with patient at bedside.patient is stable to discharge home on oral abx.
[2023-12-22] MEDS: VITAMIN D3 (cholecalciferol) 50 MCG PO (17:00)
[2023-12-22] MEDS: NORVASC 5 MG PO (17:00)
[2023-12-22] MEDS: OSCAL CAL 500 500 MG PO (17:00)
--- NOTE | 2023-12-22 17:42 | W.DCSUMMARY ---
Addendum entered and electronically signed by Kenan Coleman MD 12/22/23 23:34:
Attending Addendum:
Read reviewed and agree. See same day progress note for additional details.
Fco Coleman MD
Original Note:
Documented by User: Rosa M Ramos MD, Resident 12/22/23 18:00
Discharge Summary
Discharge Data
Date of Admission: 12/20/23
Date of Discharge: 12/22/23
-
Pending Results: No
Hospital Course
Discharging Physician : Dr. Kenan Coleman, Dr. Rosa M Ramos
Disposition : Home
Primary care physician : Dr Radha Reyes
Principal Discharge diagnosis : Sepsis secondary to right forearm cellulitis, Febrile neutropenia, Hypovolemic hyponatremia
Chronic Discharge diagnosis : Breast cancer on chemotherapy, normocytic anemia secondary to chemotherapy, paroxysmal atrial fibrillation, history of SVT, ASD status postrepair, hypertension, right bundle branch block, thyroid cancer s/p thyroidectomy
Hospital Course : 63-year-old female with ongoing chemotherapy treatment for stage 1 left breast cancer presented to the ED with fever, body aches, mild congestion, right forearm swelling, left eyelid stye. Patient received 7 days of chemotherapy
through the IV access and a shot of white blood cell. Patient started to develop the symptoms soon after the chemotherapy treatment. She also developed left eyelid stye for which she was treated with antibiotics per ophthalmology. On physical
exam while presented to the ED there was warmth on right forearm and erythema. In the ED patient's temp was 100.8, she was started on IV fluids and IV cefepime suspecting sepsis secondary to right arm cellulitis. Labs showed increased WBC count,
UA was suspicious for UTI. Patient denies dysuria, urgency, frequency, burning with urination. Patient also reported experiencing cough chest x-ray was negative for pneumonia. Blood cultures were negative. Oncology was consulted, recommendation
was to monitor ANC. Symptoms increased there was no swelling, erythema improved, mild warmth on palpation. Regarding left eye stye which also improved with the antibiotics. Patient's white count improved, ANC 2.3 which improved from 0.4. On the
day of discharge vitals are stable, no true fever in the past 24 hours. Switching to levofloxacin 500 mg once a day for 7 days to complete a 10-day course which will help in left eye infection, questionable UTI, right arm cellulitis. To follow-up
with outpatient hematology/oncology.
Important imaging findings : None
Procedure findings : None
Discharge Plan
-
Patient Disposition: Home (Routine Discharge)
Discharge Diagnosis/Procedures: Sepsis secondary to right cellulitis
Leukopenia
Normocytic anemia
Hyponatremia
breast cancer on chemotherapy
Paroxysmal atrial fibrillation
Thyroid cancer s/p thyroidectomy
Hypertension
Condition: Good
Diet: As tolerated
Activity: No restrictions
Driving Restrictions: As prior to admission
Bathing Restrictions: None
Referrals:
Nighat Reece MD [Active] - in one week
Radha Reyes DO [Family Provider] -
Additional Discharge Medication Instructions: Levofloxacin 500 mg 1 tablet daily with food for 7 days
Continue all home medications
Prescriptions:
New
levofloxacin 500 mg tablet
500 mg PO DAILY Qty: 7 0RF
Continued
amlodipine 5 mg Tablet
5 mg PO QPM
acetaminophen [Tylenol Extra Strength] 500 mg Tablet
1,000 mg PO BIDPRN PRN (Reason: mild pain)
levothyroxine 100 mcg Tablet
100 mcg PO DAILY
calcium carbonate 500 mg calcium (1,250 mg) Tablet
500 mg PO QPM
cholecalciferol (vitamin D3) 50 mcg (2,000 unit) Tablet
50 mcg PO QPM
metoprolol succinate 50 mg Tablet Extended Release 24 Hr
50 mg PO BID Qty: 60 0RF
cephalexin 500 mg tablet
500 mg PO BID
Discharge Orders:
Discharge Patient (As Directed); Ordered 12/22/23
Ordered By: Rosa M Ramos
Discharge Date and Time
Discharge Date/Time: 12/22/23 18:30
Print Language: BURMESE

Documented by User: Kenan Coleman MD 12/22/23 23:29
Discharge Summary
Discharge Data
Date of Admission: 12/20/23
Date of Discharge: 12/22/23
Discharge Plan
-
Patient Disposition: Home (Routine Discharge)
Discharge Diagnosis/Procedures: Sepsis secondary to right cellulitis
Leukopenia
Normocytic anemia
Hyponatremia
breast cancer on chemotherapy
Paroxysmal atrial fibrillation
Thyroid cancer s/p thyroidectomy
Hypertension
Condition: Good
Diet: As tolerated
Activity: No restrictions
Driving Restrictions: As prior to admission
Bathing Restrictions: None
Referrals:
Nighat Reece MD [Active] - in one week
Radha Reyes DO [Family Provider] -
Additional Discharge Medication Instructions: Levofloxacin 500 mg 1 tablet daily with food for 7 days
Continue all home medications
Prescriptions:
New
levofloxacin 500 mg tablet
500 mg PO DAILY Qty: 7 0RF
Continued
amlodipine 5 mg Tablet
5 mg PO QPM
acetaminophen [Tylenol Extra Strength] 500 mg Tablet
1,000 mg PO BIDPRN PRN (Reason: mild pain)
levothyroxine 100 mcg Tablet
100 mcg PO DAILY
calcium carbonate 500 mg calcium (1,250 mg) Tablet
500 mg PO QPM
cholecalciferol (vitamin D3) 50 mcg (2,000 unit) Tablet
50 mcg PO QPM
metoprolol succinate 50 mg Tablet Extended Release 24 Hr
50 mg PO BID Qty: 60 0RF
cephalexin 500 mg tablet
500 mg PO BID
Discharge Orders:
Discharge Patient (As Directed); Ordered 12/22/23
Ordered By: Rosa M Ramos
Discharge Date and Time
Discharge Date/Time: 12/22/23 18:30
Print Language: BURM[place]
== END 2023-12-22 18:30 | disposition home or self-care (01) | DRG 872 ==
LOC: 2 NORTH 21:33
PROVIDERS: Student in an Organized Health Care Education/Training Program; ADMITTING PHYSICIAN Hospitalist; ATTENDING PHYSICIAN Family Medicine; CONSULT PHYSICIAN Internal Medicine Hematology & Oncology; EMERGENCY PHYSICIAN Emergency Medicine; FAMILY PHYSICIAN Family Medicine
DX: A41.9 Sepsis, unspecified organism (principal); L03.113 Cellulitis of right upper limb; E87.1 Hypo-osmolality and hyponatremia; D84.9 Immunodeficiency, unspecified; D70.9 Neutropenia, unspecified; C50.912 Malignant neoplasm of unspecified site of left female breast; E89.0 Postprocedural hypothyroidism; I10 Essential (primary) hypertension; D64.81 Anemia due to antineoplastic chemotherapy; T45.1X5A Adverse effect of antineoplastic and immunosuppressive drugs, initial encounter; R50.81 Fever presenting with conditions classified elsewhere; H00.015 Hordeolum externum left lower eyelid; H10.9 Unspecified conjunctivitis; I45.10 Unspecified right bundle-branch block; I48.0 Paroxysmal atrial fibrillation; M79.631 Pain in right forearm; M79.89 Other specified soft tissue disorders; Z17.0 Estrogen receptor positive status [ER+]; Z79.01 Long term (current) use of anticoagulants; Z79.890 Hormone replacement therapy; Z79.899 Other long term (current) drug therapy; Z85.850 Personal history of malignant neoplasm of thyroid; Z86.79 Personal history of other diseases of the circulatory system; Z87.74 Personal history of (corrected) congenital malformations of heart and circulatory system
CPT/HCPCS: 71045; 80053; 81003; 81015; 83605; 85025; 87040; 87070; 87086; 87502; 87811; 93005; 96374; 99291

== ENCOUNTER → 2024-01-26 07:36 | Outpatient (REF) | payer OTHER, SELFPAY | LOC: RAD 07:36 | PROVIDERS: ATTENDING PHYSICIAN Internal Medicine Hematology & Oncology; FAMILY PHYSICIAN Family Medicine | DX: M85.80 Other specified disorders of bone density and structure, unspecified site (principal); C50.412 Malignant neoplasm of upper-outer quadrant of left female breast | CPT/HCPCS: 77080 ==

== ENCOUNTER → 2024-03-13 08:22 | Outpatient (REF) | payer OTHER, SELFPAY | LOC: WDC 08:22 | PROVIDERS: ATTENDING PHYSICIAN Radiology Radiation Oncology; FAMILY PHYSICIAN Family Medicine | DX: Z85.3 Personal history of malignant neoplasm of breast (principal); C50.412 Malignant neoplasm of upper-outer quadrant of left female breast; Z17.0 Estrogen receptor positive status [ER+]; N64.59 Other signs and symptoms in breast | CPT/HCPCS: 76642 ==

== ENCOUNTER → 2024-06-18 07:24 | Outpatient (REF) | payer OTHER, SELFPAY | LOC: WDC 07:24 | PROVIDERS: ATTENDING PHYSICIAN Family Medicine Geriatric Medicine; FAMILY PHYSICIAN Family Medicine | DX: Z12.31 Encounter for screening mammogram for malignant neoplasm of breast (principal); Z12.39 Encounter for other screening for malignant neoplasm of breast; Z85.3 Personal history of malignant neoplasm of breast | CPT/HCPCS: 77063; 77067 ==

== ENCOUNTER → 2025-06-20 07:22 | Outpatient (REF) | payer MEDICARE, SELFPAY | LOC: WDC 07:22 | PROVIDERS: ATTENDING PHYSICIAN Family Medicine Geriatric Medicine; FAMILY PHYSICIAN Family Medicine | DX: Z12.31 Encounter for screening mammogram for malignant neoplasm of breast (principal) | CPT/HCPCS: 77063; 77067 ==